=== PATIENT | female | born 1985 | race Caucasian/White ===

== ENCOUNTER 2019-01-18 09:23 | Emergency (ER) | payer OTHER ==
[~2019-01-18] VITALS: Ht 157.5 cm; Wt 55.0 kg
[2019-01-18 09:25] VITALS: BP 116/80; PULSE 110; RESP 16; Ht 157.5 cm; Wt 55.0 kg
[2019-01-18] MEDS ORDERED: BUPR-187 PO (09:41)
--- NOTE | 2019-01-18 09:45 | ERD ---
ER Documentation Chief Complaint Chief Complaint BIB RA FOR MED REFILL WELBUTRIN 100MG PO BID HPI This is a 33-year-old female presents for evaluation of a medication refill, she has a history of bipolar disorder and requests refill of her Wellbutrin, which she takes 100 mg p.o. twice daily. She states she was outside, and has been feeling anxious and felt like having a panic attack, EMS was called, currently she states that she just wants a glass of water, she denies pain, denies suicidal or homicidal ideations. ROS All systems reviewed and are negative except as per history of present illness. Medications Home Meds Active Scripts Bupropion Hcl* (Wellbutrin SR*) 100 Mg Tablet.sa, 100 MG PO BID for 28 Days, TAB.SA Prov:KIM ESPARZA MD 01/18/19 Allergies Allergies: Coded Allergies: No Known Allergy (Unverified , 01/18/19) PMhx/Soc Medical and Surgical Hx: pt denies Medical Hx, pt denies Surgical Hx Hx Alcohol Use: Yes Hx Substance Use: Yes (METH) Hx Tobacco Use: No Smoking Status: Never smoker Physical Exam Vitals Vital Signs Date Temp Pulse Resp B/P (MAP) Pulse Ox O2 O2 Flow FiO2 Time Delivery Rate 01/18/19 98.1 110 16 116/80 99 09:25 (92) Physical Exam Const: Anxious appearing, well-developed well-nourished Head: Atraumatic Eyes: Normal conjunctiva ENT: Normal external ears, nose and mouth. Neck: Resp: Normal respiratory effort Cardio: Regular rate and rhythm, no murmur Abd: Skin: Back: Ext: Neur: Awake and alert Psych: Anxious, denies suicidal or homicidal ideations. Procedures/MDM 33-year-old female presents for anxiety and request for Wellbutrin refill. Patient appears very anxious, but she has no suicidal homicidal ideations, and she can endorse a plan of care, at this time I do not feel that she requires an inpatient psychiatric consult, I refilled her Wellbutrin today, she is otherwise stable for discharge home at discharge she was in no distress. Departure Diagnosis: Primary Impression: Encounter for medication refill Condition: Stable Patient Instructions: Taking Medicine Safely Additional Instructions: Call your primary care doctor TOMORROW for an appointment during the next 2-3 days.See the doctor sooner or return here if your condition worsens before your appointment time. KIM ESPARZA MD Jan 18, 2019 09:45
== END 2019-01-18 10:22 | disposition home or self-care (01) ==
LOC: E/R 09:23
DX: F41.9 Anxiety disorder, unspecified (principal)
CPT/HCPCS: 99283